=== PATIENT | female | born 1995 | race Caucasian/White ===

== ENCOUNTER 2018-04-06 15:47 | Outpatient (CLI) | payer OTHER ==
[2018-04-06 16:22] LABS: APPEARANCE,URINE SLIGHTLY-CLOUDY; BILIRUBIN,URINE NEGATIVE (NEGATIVE); COLOR,URINE YELLOW; GLUCOSE, URINE NEGATIVE (NEGATIVE); KETONES,URINE NEGATIVE (NEGATIVE); LEUKOCYTE ESTERASE,URINE MODERATE (NEGATIVE); NITRITE,URINE NEGATIVE (NEGATIVE); PROTEIN,URINE NEGATIVE (NEGATIVE); URINE SPECIFIC GRAVITY 1.015; UROBILINOGEN,URINE NEGATIVE mg/dL (<2.0)
[2018-04-06 16:37] LABS: URINE AMPHETAMINES SCREEN NEGATIVE; URINE BARBITURATES SCREEN NEGATIVE; URINE BENZODIAZEPINES SCREEN NEGATIVE; URINE COCAINE SCREEN NEGATIVE; URINE MARIJUANA (THC) SCREEN NEGATIVE; URINE METHADONE SCREEN NEGATIVE; URINE PHENCYCLIDINE SCREEN NEGATIVE
--- NOTE | 2018-04-06 17:10 | Non Stress Test Report ---
Non Stress Test Datetime Report Generated by CPN: 04/06/2018 17:09 DEMOGRAPHIC EGA NST: 39.2 INDICATION Indication for Study: Other Indication for Study (NST) Other: labor check VITAL SIGNS Temperature - NST: 98.5 Pulse - NST: 97 RESP - NST: 14 NBPSYS NST: 121 NBPDIA NST: 82 MONITORING Monitor Explained: Monitor Explained; Test Explained; Patient Verbalized Understanding Time on Monitor: 04/06/2018 16:04 Time off Monitor: 04/06/2018 16:38 NST Duration: 34 NST INTERVENTIONS NST Interventions: PO Hydration Physician Notified NST: A. Banks, CNM BABY A: [id number] BABY A Movement : Present Contraction Frequency : 0 FHR Baseline : 125 Accelerations : 15X15 Decelerations : None Variability : Moderate 6-25bpm NST Review and Verified By : J.Field, RN NST REPORT Report Trigger: Send Report
== END 2018-04-06 16:48 | disposition home or self-care (01) ==
LOC: LC 15:47
PROVIDERS: ATTEND Student in an Organized Health Care Education/Training Program
PROC: 4A1HXCZ Monitoring of Products of Conception, Cardiac Rate, External Approach (ICD-10-PCS; principal; 2018-04-06)
DX: Z34.93 Encounter for supervision of normal pregnancy, unspecified, third trimester (principal)
CPT/HCPCS: 59025; 80307; 81005

== ENCOUNTER 2018-04-07 07:55 | Inpatient (IN) | payer OTHER ==
[2018-04-07 08:59] LABS: APPEARANCE,URINE CLOUDY; BILIRUBIN,URINE NEGATIVE (NEGATIVE); COLOR,URINE YELLOW; GLUCOSE, URINE NEGATIVE (NEGATIVE); KETONES,URINE NEGATIVE (NEGATIVE); LEUKOCYTE ESTERASE,URINE TRACE (NEGATIVE); NITRITE,URINE NEGATIVE (NEGATIVE); PROTEIN,URINE NEGATIVE (NEGATIVE); URINE SPECIFIC GRAVITY 1.011; UROBILINOGEN,URINE NEGATIVE mg/dL (<2.0)
[2018-04-07 09:19] LABS: URINE AMPHETAMINES SCREEN NEGATIVE; URINE BARBITURATES SCREEN NEGATIVE; URINE BENZODIAZEPINES SCREEN NEGATIVE; URINE COCAINE SCREEN NEGATIVE; URINE MARIJUANA (THC) SCREEN NEGATIVE; URINE METHADONE SCREEN NEGATIVE; URINE PHENCYCLIDINE SCREEN NEGATIVE
--- NOTE | 2018-04-07 10:22 | Admission Physical ---
Datetime Report Generated by CPN: 04/07/2018 10:22 CURRENT ADMISSION Chief Complaint: Uterine Contractions Chief Complaint Other: contractions since this morning every 5 minutes Indication for Induction: Not Applicable Admit Impression : Term, Intrauterine Admit Impression- Other: labor Admit Plan: Admit to Unit; Initiate Labor Protocol ALLERGIES Medication Allergies: No Medication Allergies: No Known Allergies (04/06/2018) Latex: No Latex Allergies Food Allergies: n/a Environmental Allergies: n/a OBSTETRICAL HISTORY EDC: 04/11/2018 00:00 : 2 Para: 0 Term: 0 : 0 SAB: 0 IAB: 0 Ectopic: 0 Livin Cesareans: 0 VBACs: 0 Multiple Births: 0 Gestational Diabetes: No Rh Sensitization: No Incompetent Cervix: No AMADOR: No Infertility: No ART Treatment: No Uterine Anomaly: No IUGR: No Hx Previous C/S: No Macrosomia: No Hx Loss/Stillborn: No PIH: No Hx : No Placenta Previa/Abruption: No Depression/PP Depression: No PTL/PROM: No Post Hemorrhage: No Current Procedures: Ultrasound Obstetrical History Comments: G1- SAB G2- current SEE RECORDS Alcohol: No Marijuana : No Cocaine: No Other Illicit Drugs: No Cigarettes: Never Smoker. [id number] MEDICAL HISTORY Diabetes: No Blood Transfusion: No Pulmonary Disease (Asthma, TB): No Breast Disease: No Hypertension: No Pool Installer Surgery: No Heart Disease: No Hosp/Surgery: Yes Autoimmune Disorder: No Anesthetic Complications: No Kidney Disease: No Abnormal Pap Smear: No Neuro/Epilepsy: No Psychiatric Disorders: Yes Other Medical Diseases: No Hepatitis/Liver Disease: No Significant Family History: No Varicosities/Phlebitis: No Trauma/Violence : No Thyroid Dysfunction: No Medical History Comments: bipolar, anxiety, on gabapentin and topamax at conception, tapered off with advisement of psychiatrist broken R wrist with surgery INFECTIOUS HISTORY Gonorrhea: No Genital Herpes: No Chlamydia: No Tuberculosis: No Syphilis: No Hepatitis: No HIV/AIDS Exposure: No Rash or Viral Illness: No HPV: No PHYSICAL EXAM General: Normal HEENT: Normal Neurologic: Normal Thyroid: Normal Heart: Normal Lungs: Normal Breast: Normal Back: Normal Abdomen: Normal Genitourinary Exam: Normal Extremities: Normal DTRs: Normal Pelvic Type: Adequate Vital Signs: Reviewed; Within Normal Limits VAGINAL EXAM Dilatation: 4 Effacement: 90 Station: -3 Contraction Comments: 3 MEMBRANES Pooling: Negative Membranes: Bulging FETUS A EGA: 39.3 Monitoring: External US FHR- Baseline: 120 Variability: Moderate 6-25bpm Accelerations: 15X15 Decelerations: None FHR Category: Category I PLANS FOR LABOR AND DELIVERY Labor and Delivery: None Pain Management: Epidural Feeding Preference: Breast Benefit of Breast Feed Discussed: Yes Circumcision: Yes INFORMED CONSENT Signature: with User ID: [email or web address]
[2018-04-07] MEDS: RINGERS SOLUTION,LACTATED 1,000 ML IV PRN ×3 (10:25→15:11)
[2018-04-07] MEDS ORDERED: OXYTOCIN/NORMAL SALINE 20 UNIT/1,000 ML RTUINJ IV PRN ×2 (10:34→21:03)
[2018-04-07] MEDS ORDERED: EPHEDRINE SULFATE INJ 50 MG/1 ML AMPULE ONE (11:21)
[2018-04-07] MEDS ORDERED: BUPIVACAINE HCL 0.25 % INJ/PF (2.5 MG/1 ML) 30 ML VIAL ONE (11:22)
[2018-04-07] MEDS ORDERED: FENTANYL/BUPIVACAINE/NS/PF 300 MCG/150 ML RTUINJ EPI ONE (11:22)
[2018-04-07 11:32] LABS: HEMATOCRIT 41.6 % (36.0-47.0); HEMOGLOBIN 14.3 g/dL (12.0-15.5); MEAN CORPUSCULAR HGB CONC 34.3 g/dL (32.0-36.0); MEAN CORPUSCULAR VOLUME 93 fl (80-97); RED BLOOD COUNT 4.47 10^6/uL (3.72-5.28); RED CELL DISTRIBUTION WIDTH 13.4 % (11.5-14.0); WHITE BLOOD COUNT 20.2 10^3/uL (4.0-10.5)
[2018-04-07 11:53] LABS: ABSOLUTE LYMPHOCYTES# (MANUAL) 1.2 10^3/uL (0.5-4.7); ABSOLUTE MONOCYTES # (MANUAL) 0.6 10^3/uL (0.1-1.4); ABSOLUTE NEUTROPHILS# (MANUAL) 18.2 10^3/uL (1.7-8.2); BAND NEUTROPHILS % (MANUAL) 1 % (3-5); BASOPHILS % (MANUAL) 1 % (0-2); EOSINOPHILS % (MANUAL) 0 % (0-6); LYMPHOCYTES % (MANUAL) 6 % (13-45); MONOCYTES % (MANUAL) 3 % (3-13); SEGMENTED NEUTROPHILS % (MAN) 89 % (42-78); TOTAL CELLS COUNTED 100
[2018-04-07 11:54] LABS: PLATELET CLUMPS PRESENT; PLATELET COMMENT ADEQUATE; PLATELET COUNT 198 10^3/uL (150-450); RBC MORPHOLOGY COMMENT NORMO-CYTIC/CHROMIC
[2018-04-07] MEDS ORDERED: OXYTOCIN/NORMAL SALINE 20 UNIT/1,000 ML RTUINJ ONE (12:52)
[2018-04-07] MEDS ORDERED: LIDOCAINE 1% INJ-PF (10 MG/ML) 30 ML SDV ONE (12:52)
[2018-04-07] MEDS ORDERED: MISOPROSTOL 0.2 MG TABLET ONE (12:52)
[2018-04-07] MEDS ORDERED: ACETAMINOPHEN 325 MG TABLET PO ONE (19:12)
[2018-04-07] MEDS ORDERED: ACETAMINOPHEN 325 MG TABLET ONE (19:30)
[2018-04-07 21:03] LABS: ARTERIAL BLOOD BASE EXCESS -6.2 mmol/L; ARTERIAL BLOOD H2CO3 1.42 mmol/L (1.05-1.35); ARTERIAL BLOOD HCO3 20.9 mmol/L (20-26); ARTERIAL BLOOD O2 SATURATION 31.8 % (94-98); ARTERIAL BLOOD PCO2 47.3 mmHg (35-45); ARTERIAL BLOOD PH 7.26 (7.35-7.45); ARTERIAL BLOOD TOTAL CO2 22.4 mmol/L (21-25)
[2018-04-07] MEDS ORDERED: DIBUCAINE 1% OINTMENT 28 GM TP PRN (21:03)
[2018-04-07] MEDS ORDERED: MEASLES,MUMPS&RUBELLA VACC/PF 0.5 ML VIAL SUBCUT PRN (21:03)
[2018-04-07] MEDS ORDERED: ZOLPIDEM TARTRATE 5 MG TABLET PO PRN (21:03)
[2018-04-07] MEDS ORDERED: ACETAMINOPHEN WITH CODEINE #3 TABLET PO PRN ×2 (21:03)
[2018-04-07] MEDS ORDERED: BENZOCAINE/MENTHOL AEROSOL SPRAY 56 ML TOP PRN (21:03)
[2018-04-07] MEDS ORDERED: DIPH/PERTUSS(ACELL)/TETANUS VAC/PF 0.5 ML SYR (>=10YO) IM PRN (21:03)
[2018-04-07 21:04] LABS: ARTERIAL BLOOD PO2 22.6 mmHg (80-100)
--- NOTE | 2018-04-07 21:10 | Warning Signs in Babies ---
VOD Warning Signs Datetime Report Generated by [facility]: 04/07/2018 21:10 VOD#608 -Warning Signs in Babies: Viewed with Parent(s)/Family (04/07/2018 21:09:Anabell Leon RN)
--- NOTE | 2018-04-07 21:11 | PDOC DELIVERY SUMMARY ---
Delivery Summary - Maternal Hx : II Hx Para: 0 Hx # Term Pregnancies: 1 Hx # Pregnancies: 0 Hx Total # of Abortions (Sponateous & Elective): 1 Number of Living Children: 0 HEATHER: 04/11/18 Gestational Age: 39.3 Ruptured Membranes: AROM Time of Rupture: 12:31 Fluids: Clear Fluid Description: clear moderate amount - Delivery Labor: Augmentation Presentation: Vertex Heart Rate Monitoring: Externally Uterine Contraction Monitoring: External Pattern: Variable Decels Pattern Other: overall reassuring Support Person Present: Yes - and friend Location: LD - room 5 Placenta: Within Normal Limits Placenta Description: normal appearing Number of Vessels (Cord): 3 Nuchal Cord: No Delivery of Placenta Date: 04/07/18 Delivery of Placenta Time: 20:50 Estimated Blood Loss: 100 Delivery Quantitative Blood Loss (QBL): 100 - Medications Type of Anesthesia:: Epidural - Assess and Care Baby 1 Male Delivery of Infant Date: 04/07/18 Delivery of Time: 20:45 at 1 minute: 8 at 5 minutes: 9 Skin to Skin: Yes Skin to Skin (Mins): 1 - infant placed immediately on mothers abdomen - Delivery Personnel MD: MARLYS AUSTIN - pending weight and length
--- NOTE | 2018-04-07 22:48 | Delivery Summary ---
Del Sum A-C Datetime Report Generated by CPN: 04/07/2018 22:47 DELIVERY PERSONNEL DELIVERY PERSONNEL: [id number] Delivery Doctor:: Silvia Arevalo MD Labor and Delivery Nurse:: Anabell Leon RNaccount service associate Nurse:: Julianne Frank RN Portable Power Tool Repairer/AMUSEMENT CENTRE MANAGER: Perlita DavisEMILIA dover Portable Power Tool Repairer/AMUSEMENT CENTRE MANAGER: Lulújasbir Vazquez, ST MATERNAL INFORMATION Delivery Anesthesia: Epidural Medications After Delivery: Pitocin Drip 20 Units/1000ml NSS Maternal Complications: None LABOR SUMMARY EDC: 04/11/2018 00:00 No. Babies in Womb: 1 Attempted: No Labor Anesthesia: Epidural LABOR INFORMATION Reason for Induction: Not Applicable Onset of Labor: 04/07/2018 12:31 Complete Dilatation: 04/07/2018 20:04 Oxytocin: N/A Group B Beta Strep: negative Antibiotics # of Doses: N/A Antibiotics Time of Last Dose: N/A Steroids Given: None Reason Steroids Not Administered: Not Applicable MEMBRANES Membranes Rupture Method: Artificial Rupture of Membranes: 04/07/2018 12:31 Length of Rupture (hr): 8.23 Amniotic Fluid Color: Clear Amniotic Fluid Amount: Moderate Amniotic Fluid Odor: Normal STAGES OF LABOR Stage 1 hr: 7 Stage 1 min: 33 Stage 2 hr: 0 Stage 2 min: 41 Stage 3 hr: 0 Stage 3 min: 3 Total Time in Labor hr: 8 Total Time in Labor min: 17 VAGINAL DELIVERY Episiotomy: None Laceration #1: Periurethral Laceration Extension #1: First Degree Laceration #2: None Laceration Extension #2: N/A Laceration #3: None Laceration Extension #3: N/A Other Laceration: hemostatic Laceration Repair: Not Applicable Sponge Count Correct: Vaginal Sweep Performed Sharps Count Correct: N/A CSECTION DELIVERY Primary Indication: N/A Secondary Indication: N/A CSection Incidence: N/A Labor: N/A Elective: N/A CSection Incision: N/A BABY A INFORMATION Delivery Date/Time: 04/07/2018 20:45 Method of Delivery: Vaginal Born in Route : No : N/A Forceps: N/A Vacuum Extraction: N/A Shoulder Dystocia : No PRESENTATION/POSITION BABY A Presentation: Cephalic Cephalic Presentation: Vertex Breech Presentation: N/A PLACENTA INFORMATION BABY A Placenta Delivery Time : 04/07/2018 20:48 Placenta Method of Delivery: Spontaneous Placenta Status: Delivered SCORES BABY A Heart Rate 1 min: >100 bpm Resp Effort 1 min: Good Cry Reflex Irritability 1 min: Cough or Sneeze or Pulls Away Muscle Tone 1 min: Active Motion Color 1 min: Blue/Pale Resuscitation Effort 1 min: Tactile Stimulation SCORE 1 MIN: 8 Heart Rate 5 min: >100 bpm Resp Effort 5 min: Good Cry Reflex Irritability 5 min: Cough or Sneeze or Pulls Away Muscle Tone 5 min: Active Motion Color 5 min: Body [place], Extremities Blue Resuscitation Effort 5 min: Tactile Stimulation SCORE 5 MIN: 9 INFORMATION BABY A Gestational Age at Delivery: 39.3 Gestational Status: Full Term- 39- 40.6 Weeks Outcome : Liveborn Infant Condition : Stable Infant Sex: Male IDENTIFICATION BABY A Infant Verification Date/Time: 04/07/2018 21:07 ID Band Number: [id number] Mother's Name Verified: Yes RN Verifying Infant: B. Ring RN _ E. Gerald RN WEIGHT/LENGTH BABY A Birthweight (gm): 3010 Weight (lb): 6 Weight (oz): 10 Infant Length (in): 19.50 Infant Length (cm): 49.53 CORD INFORMATION BABY A No. Cord Vessels: 3 Nuchal Cord : N/A Cord Blood Taken: Yes-For Storage (Mom's Blood type +) Infant Suction: Mouth; Nose ASSESSMENT BABY A Infant Complications: None Physical Findings at Delivery: Within Normal Limits Physical Findings- Other: See full nursery assessment Respirations: Appears Normal Skin to Skin: Yes Skin to Skin Time (min): 120 Location Analyst/ALS Called : No Transferred To: Remains with Mother BABY B INFORMATION : N/A SIGNATURES Signature: with User ID: [email or web address]
[2018-04-07] MEDS: IBUPROFEN 800 MG TABLET PO SCH (23:16)
[2018-04-08] MEDS: IBUPROFEN 800 MG TABLET PO SCH ×3 (06:26→21:33)
[2018-04-08 07:57] LABS: HEMATOCRIT 35.5 % (36.0-47.0); MEAN CORPUSCULAR HEMOGLOBIN 31.7 pg (27.0-33.4); MEAN CORPUSCULAR HGB CONC 33.7 g/dL (32.0-36.0); MEAN CORPUSCULAR VOLUME 94 fl (80-97); PLATELET COUNT 148 10^3/uL (150-450); RED BLOOD COUNT 3.78 10^6/uL (3.72-5.28); RED CELL DISTRIBUTION WIDTH 13.5 % (11.5-14.0); WHITE BLOOD COUNT 18.2 10^3/uL (4.0-10.5)
--- NOTE | 2018-04-08 09:01 | PDOC PROGRESS REPORT ---
Subjective-OB Progress Note for:: 04/08/18 Subjective: reports bleeding slowing, pain controlled with current meds, denies needs. Physical Exam (OB) Vital Signs: Temp Pulse Resp BP Pulse Ox 98.7 F 108 H 18 116/67 96 04/07/18 23:09 04/07/18 23:09 04/07/18 23:09 04/07/18 23:09 04/07/18 23:09 Intake & Output 04/07/18 04/08/18 04/09/18 06:59 06:59 06:59 Intake Total 1148 Balance 1148 Weight 83.1 kg - Abdomen Description: Soft Hernia Present: No Fundal Description: Firm, Midline Fundal Height: u/u - u/2 - Abdominal Inspection: Normal Distension: No distension Tenderness: Nontender - Extremities Lower extremities: Jacqueline's sign - neg Calf: Normal, Nontender Objective-Diagnostic Laboratory: 04/08/18 06:55 04/07/18 04/07/18 04/07/18 08:06 11:15 11:15 WBC 20.2 H RBC 4.47 Hgb 14.3 Hct 41.6 MCV 93 MCH 32.0 MCHC 34.3 RDW 13.4 Plt Count 198 Seg Neutrophils % Not Reportable Lymphocytes % Not Reportable Monocytes % Not Reportable Eosinophils % Not Reportable Basophils % Not Reportable Absolute Neutrophils Not Reportable Absolute Lymphocytes Not Reportable Absolute Monocytes Not Reportable Absolute Eosinophils Not Reportable Absolute Basophils Not Reportable Carbonic Acid HCO3/H2CO3 Ratio ABG pH ABG pCO2 ABG pO2 ABG HCO3 ABG O2 Saturation ABG Base Excess FiO2 Urine Color YELLOW Urine Appearance CLOUDY Urine pH 6.0 Ur Specific [place] 1.011 Urine Protein NEGATIVE Urine Glucose (UA) NEGATIVE Urine Ketones NEGATIVE Urine Blood SMALL H Urine Nitrite NEGATIVE Ur Leukocyte Esterase TRACE H Blood Type A POSITIVE Antibody Screen NEGATIVE 04/07/18 04/08/18 20:46 06:55 WBC 18.2 H RBC 3.78 Hgb 12.0 D Hct 35.5 L MCV 94 MCH 31.7 MCHC 33.7 RDW 13.5 Plt Count 148 L Seg Neutrophils % Lymphocytes % Monocytes % Eosinophils % Basophils % Absolute Neutrophils Absolute Lymphocytes Absolute Monocytes Absolute Eosinophils Absolute Basophils Carbonic Acid 1.42 H HCO3/H2CO3 Ratio 14:1 ABG pH 7.26 L ABG pCO2 47.3 H ABG pO2 22.6 L* ABG HCO3 20.9 ABG O2 Saturation 31.8 L ABG Base Excess -6.2 FiO2 Urine Color Urine Appearance Urine pH Ur Specific [place] Urine Protein Urine Glucose (UA) Urine Ketones Urine Blood Urine Nitrite Ur Leukocyte Esterase Blood Type Antibody Screen Assessment and Plan(PN) - Assessment and Plan (1) Normal vaginal delivery Is this a current diagnosis for this admission?: Yes - Time Spent with Patient Time with patient: Less than 15 minutes Medications reviewed and adjusted accordingly: Yes - Disposition Anticipated Discharge: Home Within: within 24 hours
[2018-04-08] MEDS: SENNOSIDES/DOCUSATE 8.6-50 MG 1 EACH TABLET PO SCH (10:05)
[2018-04-08] MEDS: FERROUS SULFATE 325 MG TABLET PO SCH ×2 (10:06→17:29)
[2018-04-08] MEDS: PRENATAL VITAMIN W DHA CAPSULE PO SCH ×2 (10:06)
[2018-04-08] MEDS: DOCUSATE SODIUM 100 MG CAPSULE PO SCH ×2 (10:06→17:29)
[2018-04-09] MEDS: IBUPROFEN 800 MG TABLET PO SCH ×2 (06:47→15:04)
[2018-04-09 08:09] VITALS: BP 124/74
--- NOTE | 2018-04-09 09:34 | PDOC DISCHARGE SUMMARY ---
Final Diagnosis Discharge Date: 04/09/18 - Final Diagnosis (1) Normal vaginal delivery Is this a current diagnosis for this admission?: Yes Discharge Data - Discharge Medication Prescriptions: Ibuprofen [Motrin 800 mg Tablet] 800 mg PO Q8HP PRN #30 tablet PRN Reason: Abdominal Cramping Home Medications: No122/Iron/Folic Acid [ Multi Tablet] 1 tab PO DAILY 04/06/18 Ibuprofen [Motrin 800 mg Tablet] 800 mg PO Q8HP PRN #30 tablet 04/09/18 Reason(s) for Admission: Onset of Labor Procedures: Ultrasound Intrapartum Procedure(s): Spontaneous Vaginal Delivery Complication(s): Laceration-Periurethral Laceration-Degree: 1st - Diagnosis Test Laboratory: Temp Pulse Resp BP Pulse Ox 98.6 F 74 16 124/74 100 04/09/18 07:47 04/09/18 07:47 04/09/18 07:47 04/09/18 07:47 04/09/18 07:47 04/07/18 04/07/18 04/08/18 08:06 11:15 06:55 RBC 4.47 3.78 Hgb 14.3 12.0 D Hct 41.6 35.5 L Urine Opiates Screen NEGATIVE - Discharge information/Instructions Discharge Activity: Activity As Tolerated, Balance Activity w/Rest, No Lifting Over 10 Pounds, Pelvic Rest, No tub bath, Walk Frequently Discharge Diet: Regular Disposition: HOME, SELF-CARE Follow up with: [facility] in: 4, Weeks
[2018-04-09] MEDS: PRENATAL VITAMIN W DHA CAPSULE PO SCH ×2 (09:54→14:55)
[2018-04-09] MEDS: DOCUSATE SODIUM 100 MG CAPSULE PO SCH (09:55)
[2018-04-09] MEDS: SENNOSIDES/DOCUSATE 8.6-50 MG 1 EACH TABLET PO SCH (09:55)
[2018-04-09] MEDS: FERROUS SULFATE 325 MG TABLET PO SCH (09:55)
== END 2018-04-09 18:44 | disposition home or self-care (01) | DRG 775 ==
LOC: LC 07:55 → LR 10:28 → 2S 22:54
PROVIDERS: ADMIT Obstetrics & Gynecology; ATTEND Obstetrics & Gynecology
PROC: 10E0XZZ Delivery of Products of Conception, External Approach (ICD-10-PCS; principal; 2018-04-07)
PROC: 4A1HXCZ Monitoring of Products of Conception, Cardiac Rate, External Approach (ICD-10-PCS; 2018-04-07)
PROC: 3E0234Z Introduction of Serum, Toxoid and Vaccine into Muscle, Percutaneous Approach (ICD-10-PCS; 2018-04-09)
DX: O99.344 Other mental disorders complicating childbirth (principal); O71.82 Other specified trauma to perineum and vulva; O70.0 First degree perineal laceration during delivery; F41.9 Anxiety disorder, unspecified; Z3A.39 39 weeks gestation of pregnancy; Z37.0 Single live birth; Z23 Encounter for immunization
CPT/HCPCS: 36415; 59025; 80307; 81005; 82803; 85025; 85027; 86592; 86850; 86900; 86901; 90715; 94760; J2590; J3010; J3490

== ENCOUNTER 2019-08-07 08:20 | Inpatient (IN) | payer OTHER ==
[2019-08-07] MEDS ORDERED: RINGERS SOLUTION,LACTATED 1,000 ML IV PRN (08:54)
[2019-08-07] MEDS ORDERED: RINGERS SOLUTION,LACTATED 1,000 ML IV ONE (08:54)
[2019-08-07] MEDS ORDERED: MISOPROSTOL 0.2 MG TABLET ONE (08:59)
[2019-08-07] MEDS ORDERED: OXYTOCIN 10 UNIT/ML VIAL ONE (08:59)
[2019-08-07] MEDS ORDERED: OXYTOCIN/NORMAL SALINE 20 UNIT/1,000 ML RTUINJ ONE (09:00)
[2019-08-07] MEDS ORDERED: LIDOCAINE 1% INJ-PF (10 MG/ML) 30 ML SDV ONE (09:00)
--- NOTE | 2019-08-07 09:02 | Admission Physical ---
Datetime Report Generated by CPN: 08/07/2019 09:02 CURRENT ADMISSION Chief Complaint: Uterine Contractions Indication for Induction: Not Applicable Admit Impression : Term, Intrauterine ; Active Labor; Intact Membranes Admit Plan: Admit to Unit; Initiate Labor Protocol ALLERGIES Medication Allergies: No Medication Allergies: No Known Allergies (04/06/2018) Latex: No Latex Allergies OBSTETRICAL HISTORY EDC: 08/13/2019 00:00 : 2 Para: 1 Term: 1 Livin Gestational Diabetes: No Rh Sensitization: No Incompetent Cervix: No AMADOR: No Infertility: No ART Treatment: No Uterine Anomaly: No IUGR: No Hx Previous C/S: No Macrosomia: No Hx Loss/Stillborn: No PIH: No Hx : No Placenta Previa/Abruption: No Depression/PP Depression: No PTL/PROM: No Post Hemorrhage: No Current Procedures: Ultrasound; NST SEE RECORDS Alcohol: No Marijuana : No Cocaine: No Other Illicit Drugs: No Cigarettes: Never Smoker. 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 Heart Disease: No Hosp/Surgery: No Autoimmune Disorder: No Anesthetic Complications: No Kidney Disease: No Abnormal Pap Smear: No Neuro/Epilepsy: No Psychiatric Disorders: No Other Medical Diseases: No Hepatitis/Liver Disease: No Significant Family History: No Varicosities/Phlebitis: No Trauma/Violence : No Thyroid Dysfunction: No INFECTIOUS HISTORY Gonorrhea: No Genital Herpes: No Chlamydia: No Tuberculosis: No Syphilis: No Hepatitis: No HIV/AIDS Exposure: No Rash or Viral Illness: No HPV: No PHYSICAL EXAM General: Normal HEENT: Normal Neurologic: Normal Thyroid: Normal Heart: Normal Lungs: Normal Breast: Normal Back: Normal Abdomen: Normal Genitourinary Exam: Normal Extremities: Normal DTRs: Normal Pelvic Type: Adequate Vital Signs: Reviewed; Within Normal Limits VAGINAL EXAM Dilatation: 6 Effacement: 90 Station: -1 Contraction Comments: q 4 min MEMBRANES Membranes: Intact FETUS A EGA: 39.1 Monitoring: External US FHR- Baseline: 120s Variability: Moderate 6-25bpm Accelerations: 15X15 Decelerations: None FHR Category: Category I Admit Comment: presented to L_D c/o contractions which started early this morning. Her cervical exam is 6 cm. Membranes intact. She reports good movement. GBS Neg. No co-morbidities. PLANS FOR LABOR AND DELIVERY Labor and Delivery: None Pain Management: Epidural Feeding Preference: Breast Benefit of Breast Feed Discussed: Yes Circumcision: Yes INFORMED CONSENT Signature: with User ID: [email or web address]
[2019-08-07 09:20] LABS: ABSOLUTE LYMPHOCYTES (AUTO) 1.7 10^3/uL (0.5-4.7); ABSOLUTE MONOCYTES (AUTO) 0.7 10^3/uL (0.1-1.4); ABSOLUTE NEUT (AUTO) 11.3 10^3/uL (1.7-8.2); BASOPHILS % (AUTO) 0.1 % (0-2); EOSINOPHILS % (AUTO) 0.2 % (0-6); HEMATOCRIT 39.5 % (36.0-47.0); HEMOGLOBIN 13.2 g/dL (12.0-15.5); LYMPHOCYTES % (AUTO) 12.4 % (13-45); MEAN CORPUSCULAR HEMOGLOBIN 29.9 pg (27.0-33.4); MEAN CORPUSCULAR HGB CONC 33.4 g/dL (32.0-36.0); MEAN CORPUSCULAR VOLUME 89 fl (80-97); MONOCYTES % (AUTO) 5.2 % (3-13); PLATELET COUNT 189 10^3/uL (150-450); RED BLOOD COUNT 4.42 10^6/uL (3.72-5.28); RED CELL DISTRIBUTION WIDTH 13.7 % (11.5-14.0); SEGMENTED NEUTROPHILS % (AUTO) 82.1 % (42-78); TOTAL CELLS COUNTED % (AUTO) 100 %; WHITE BLOOD COUNT 13.7 10^3/uL (4.0-10.5)
[2019-08-07 09:33] LABS: APPEARANCE,URINE CLOUDY; BILIRUBIN,URINE NEGATIVE (NEGATIVE); COLOR,URINE YELLOW; GLUCOSE, URINE NEGATIVE (NEGATIVE); KETONES,URINE NEGATIVE (NEGATIVE); LEUKOCYTE ESTERASE,URINE LARGE (NEGATIVE); NITRITE,URINE NEGATIVE (NEGATIVE); PROTEIN,URINE 30 mg/dL (NEGATIVE); URINE SPECIFIC GRAVITY 1.023; UROBILINOGEN,URINE NEGATIVE mg/dL (<2.0)
[2019-08-07] MEDS ORDERED: FENTANYL/BUPIVACAINE/NS/PF 300 MCG/150 ML RTUINJ EPI ONE (09:33)
[2019-08-07] MEDS ORDERED: EPHEDRINE SULFATE INJ 50 MG/1 ML AMPULE ONE (09:33)
[2019-08-07] MEDS ORDERED: BUPIVACAINE HCL 0.25 % INJ/PF (2.5 MG/1 ML) 30 ML VIAL ONE (09:33)
[2019-08-07 09:51] LABS: URINE AMPHETAMINES SCREEN NEGATIVE; URINE BARBITURATES SCREEN NEGATIVE; URINE BENZODIAZEPINES SCREEN NEGATIVE; URINE COCAINE SCREEN NEGATIVE; URINE MARIJUANA (THC) SCREEN NEGATIVE; URINE METHADONE SCREEN NEGATIVE; URINE PHENCYCLIDINE SCREEN NEGATIVE
[2019-08-07] MEDS ORDERED: DIPH/PERTUSS(ACELL)/TETANUS VAC/PF 0.5 ML SYR (>=10YO) IM PRN (13:15)
[2019-08-07] MEDS ORDERED: DIBUCAINE 1% OINTMENT 56 GM TP PRN (13:15)
[2019-08-07] MEDS ORDERED: PSEUDOEPHEDRINE HCL 30 MG TABLET PO PRN (13:15)
[2019-08-07] MEDS ORDERED: DIPHENHYDRAMINE HCL 25 MG CAPSULE PO PRN (13:15)
[2019-08-07] MEDS ORDERED: PROMETHAZINE HCL INJ 25 MG/1 ML VIAL IV PRN (13:15)
[2019-08-07] MEDS ORDERED: NA PHOS,M-B/NA PHOS,DI-BA (ADULT) 133 ML ENEMA PR PRN (13:15)
[2019-08-07] MEDS ORDERED: MAGNESIUM HYDROXIDE SUSP 30 ML UDCUP PO PRN (13:15)
[2019-08-07] MEDS ORDERED: PROMETHAZINE HCL 25 MG TABLET PO PRN (13:15)
[2019-08-07] MEDS ORDERED: PROMETHAZINE HCL 25 MG SUPP.RECT PR PRN (13:15)
[2019-08-07] MEDS ORDERED: BENZOCAINE/MENTHOL AEROSOL SPRAY 56 ML TOP PRN (13:15)
[2019-08-07] MEDS ORDERED: OXYTOCIN/NORMAL SALINE 20 UNIT/1,000 ML RTUINJ IV PRN (13:15)
[2019-08-07] MEDS ORDERED: MEASLES,MUMPS&RUBELLA VACC/PF 0.5 ML VIAL SUBCUT PRN (13:15)
[2019-08-07] MEDS ORDERED: GLYCERIN/WITCH HAZEL LEAF 1 EACH MED..WIPE TP PRN (13:15)
[2019-08-07] MEDS ORDERED: ACETAMINOPHEN 325 MG TABLET PO PRN (13:15)
[2019-08-07] MEDS: IBUPROFEN 800 MG TABLET PO SCH ×2 (15:56→21:00)
[2019-08-07] MEDS: DOCUSATE SODIUM 100 MG CAPSULE PO SCH (17:54)
[2019-08-07] MEDS: FERROUS SULFATE 325 MG TABLET PO SCH (17:54)
[2019-08-07] MEDS: FAMOTIDINE 20 MG TABLET PO SCH (21:04)
[2019-08-08] MEDS: IBUPROFEN 800 MG TABLET PO SCH ×3 (05:36→21:27)
[2019-08-08 07:21] LABS: HEMATOCRIT 33.9 % (36.0-47.0); HEMOGLOBIN 11.4 g/dL (12.0-15.5); MEAN CORPUSCULAR HEMOGLOBIN 30.1 pg (27.0-33.4); MEAN CORPUSCULAR HGB CONC 33.6 g/dL (32.0-36.0); MEAN CORPUSCULAR VOLUME 90 fl (80-97); PLATELET COUNT 166 10^3/uL (150-450); RED BLOOD COUNT 3.78 10^6/uL (3.72-5.28); RED CELL DISTRIBUTION WIDTH 13.8 % (11.5-14.0); WHITE BLOOD COUNT 13.7 10^3/uL (4.0-10.5)
[2019-08-08] MEDS: SENNOSIDES/DOCUSATE 8.6-50 MG 1 EACH TABLET PO SCH (09:55)
[2019-08-08] MEDS: PRENATAL VITAMIN W DHA CAPSULE PO SCH (09:55)
[2019-08-08] MEDS: FAMOTIDINE 20 MG TABLET PO SCH ×2 (09:55→21:26)
[2019-08-08] MEDS: FERROUS SULFATE 325 MG TABLET PO SCH ×2 (09:55→17:34)
[2019-08-08] MEDS: DOCUSATE SODIUM 100 MG CAPSULE PO SCH ×2 (09:55→17:34)
--- NOTE | 2019-08-08 10:14 | PDOC PROGRESS REPORT ---
Subjective-OB Progress Note for:: 08/08/19 Physical Exam (OB) Vital Signs: Temp Pulse Resp BP Pulse Ox 97.7 F 63 16 107/67 100 08/08/19 07:46 08/08/19 07:46 08/08/19 07:46 08/08/19 07:46 08/08/19 07:46 Intake & Output 08/07/19 08/08/19 08/09/19 06:59 06:59 06:59 Weight 83 kg - PIH/Pre-Eclampsia DTR's: 2 + Clonus: Negative Headache: Absent Epigastric Pain: No Visual Changes: No - Lochia Lochia Amount: Small 10-25 ml Lochia Color: Rubra/Red - Abdomen Description: Soft, Round Hernia Present: No Bowel Sounds: Normoactive Flatus Presence: Present Stool: Yes Fundal Description: Firm, Midline Fundal Height: u/u - u/2 Objective-Diagnostic Laboratory: 08/08/19 06:40 08/08/19 06:40 WBC 13.7 H RBC 3.78 Hgb 11.4 L Hct 33.9 L MCV 90 MCH 30.1 MCHC 33.6 RDW 13.8 Plt Count 166
[2019-08-09] MEDS: IBUPROFEN 800 MG TABLET PO SCH ×2 (05:17→14:51)
[2019-08-09 09:23] VITALS: BP 114/73
[2019-08-09] MEDS: FERROUS SULFATE 325 MG TABLET PO SCH (09:26)
[2019-08-09] MEDS: PRENATAL VITAMIN W DHA CAPSULE PO SCH (09:26)
[2019-08-09] MEDS: FAMOTIDINE 20 MG TABLET PO SCH (09:26)
[2019-08-09] MEDS: SENNOSIDES/DOCUSATE 8.6-50 MG 1 EACH TABLET PO SCH (09:26)
[2019-08-09] MEDS: DOCUSATE SODIUM 100 MG CAPSULE PO SCH (09:26)
--- NOTE | 2019-08-09 10:37 | PDOC DISCHARGE SUMMARY ---
Impression - Admit/DC Date/PCP Admission Date/Primary Care Provider: 08/07/19 08:56 ALESSIO ALCARAZ MD Discharge Date: 08/09/19 - Discharge Diagnosis (1) Normal vaginal delivery Is this a current diagnosis for this admission?: Yes - Additional Information Resuscitation Status: Full Code Discharge Diet: Regular Discharge Activity: Balance Activity w/Rest Referrals: ALESSIO ALCARAZ MD [Primary Care Provider] - Prescriptions: Ibuprofen [Motrin 800 mg Tablet] 800 mg PO Q8HP PRN #60 tablet PRN Reason: Home Medications: No122/Iron/Folic Acid [ Multi Tablet] 1 tab PO DAILY 04/06/18 Ibuprofen [Motrin 800 mg Tablet] 800 mg PO Q8HP PRN #60 tablet 08/09/19 Results Laboratory Results: WBC 13.7 10^3/uL (4.0-10.5) H 08/08/19 06:40 RBC 3.78 10^6/uL (3.72-5.28) 08/08/19 06:40 Hgb 11.4 g/dL (12.0-15.5) L 08/08/19 06:40 Hct 33.9 % (36.0-47.0) L 08/08/19 06:40 MCV 90 fl (80-97) 08/08/19 06:40 MCH 30.1 pg (27.0-33.4) 08/08/19 06:40 MCHC 33.6 g/dL (32.0-36.0) 08/08/19 06:40 RDW 13.8 % (11.5-14.0) 08/08/19 06:40 Plt Count 166 10^3/uL (150-450) 08/08/19 06:40 Lymph % (Auto) 12.4 % (13-45) L 08/07/19 09:08 [place] % (Auto) 5.2 % (3-13) 08/07/19 09:08 Eos % (Auto) 0.2 % (0-6) 08/07/19 09:08 Baso % (Auto) 0.1 % (0-2) 08/07/19 09:08 Absolute Neuts (auto) 11.3 10^3/uL (1.7-8.2) H 08/07/19 09:08 Absolute Lymphs (auto) 1.7 10^3/uL (0.5-4.7) 08/07/19 09:08 Absolute Monos (auto) 0.7 10^3/uL (0.1-1.4) 08/07/19 09:08 Absolute Eos (auto) 0.0 10^3/uL (0.0-0.6) 08/07/19 09:08 Absolute Basos (auto) 0.0 10^3/uL (0.0-0.2) 08/07/19 09:08 Seg Neutrophils % 82.1 % (42-78) H 08/07/19 09:08 Urine Color YELLOW 08/07/19 07:59 Urine Appearance CLOUDY 08/07/19 07:59 Urine pH 7.0 (5.0-9.0) 08/07/19 07:59 Ur Specific [place] 1.023 08/07/19 07:59 Urine Protein 30 mg/dL (NEGATIVE) H 08/07/19 07:59 Urine Glucose (UA) NEGATIVE mg/dL (NEGATIVE) 08/07/19 07:59 Urine Ketones NEGATIVE mg/dL (NEGATIVE) 08/07/19 07:59 Urine Blood NEGATIVE (NEGATIVE) 08/07/19 07:59 Urine Nitrite NEGATIVE (NEGATIVE) 08/07/19 07:59 Urine Bilirubin NEGATIVE (NEGATIVE) 08/07/19 07:59 Urine Urobilinogen NEGATIVE mg/dL (<2.0) 08/07/19 07:59 Ur Leukocyte Esterase LARGE (NEGATIVE) H 08/07/19 07:59 Urine Ascorbic Acid NEGATIVE (NEGATIVE) 08/07/19 07:59 Urine Opiates Screen NEGATIVE 08/07/19 08:35 Urine Methadone Screen NEGATIVE 08/07/19 08:35 Ur Barbiturates Screen NEGATIVE 08/07/19 08:35 Ur Phencyclidine Scrn NEGATIVE 08/07/19 08:35 Ur Amphetamines Screen NEGATIVE 08/07/19 08:35 U Benzodiazepines Scrn NEGATIVE 08/07/19 08:35 Urine Cocaine Screen NEGATIVE 08/07/19 08:35 U Marijuana (THC) Screen NEGATIVE 08/07/19 08:35 RPR NONREACTIVE (NONREACTIVE) 08/07/19 09:08 Blood Type A POSITIVE 08/07/19 09:08 Antibody Screen NEGATIVE 08/07/19 09:08
--- NOTE | 2019-08-12 13:23 | Delivery Summary ---
Del Sum A-C Datetime Report Generated by CPN: 08/12/2019 13:23 DELIVERY PERSONNEL DELIVERY PERSONNEL: [id number] Delivery Doctor:: Lindsay Grady CNM Nurse Adjudication Specialist Certified:: Lindsay Grady CNM Labor and Delivery Nurse:: Светлана Pastor RNsteam bone press tender Nurse:: Diane Leal RN Student Observers:: st Barb student CCC Braided Band Assembler/RETAIL MERCHANDISER TECHNICIAN: Sandi Shields, LAND INSPECTOR Additional Personnel: : Veronicawen Adorno, RNC MATERNAL INFORMATION Delivery Anesthesia: Epidural Medications After Delivery: Pitocin Bolus-Please Comment Meds After Delivery Comment: Pitocin 20 units in 1000 ml ns open for bolus after delivery of placenta Cytotec 1000mcg sublingual Delivery QBL: 100 Maternal Complications: None Provider Comments: Pt quickly progressed to c/c/2 with presure and slight urge to push after AROM. Began pushing and quickly delivered a viable baby boy. Baby delivered thru loose nuchal cord in DENSI position. Vigorous respiratory effort and cry spontaneously at . Baby placed on maternal abdomen skin to skin, cord allowed to stop pulsating then clamped x2 and cut by myself (3vc noted). Placenta delivered spontaneously intact, minimal bleeding, fundus firm @ U -3. Vaginal and perineal inspection revealed no lacerations. Mother and baby remain skin to skin and bonding at this time. LABOR SUMMARY EDC: 08/13/2019 00:00 No. Babies in Womb: 1 Attempted: No Labor Anesthesia: Epidural LABOR INFORMATION Reason for Induction: Not Applicable Onset of Labor: 08/07/2019 05:00 Complete Dilatation: 08/07/2019 12:26 Oxytocin: N/A Group B Beta Strep: Negative Antibiotics # of Doses: 0 Steroids Given: None Reason Steroids Not Administered: Not Applicable MEMBRANES Membranes Rupture Method: Artificial Rupture of Membranes: 08/07/2019 11:59 Length of Rupture (hr): 0.77 Amniotic Fluid Color: Clear Amniotic Fluid Amount: Moderate Amniotic Fluid Odor: Normal STAGES OF LABOR Stage 1 hr: 7 Stage 1 min: 26 Stage 2 hr: 0 Stage 2 min: 19 Stage 3 hr: 0 Stage 3 min: 6 Total Time in Labor hr: 7 Total Time in Labor min: 51 VAGINAL DELIVERY Episiotomy: None Laceration #1: None Laceration Extension #1: N/A Laceration Repair: Not Applicable Laceration Repair Note: n/a Sponge Count Correct: N/A Sharps Count Correct: N/A CSECTION DELIVERY Primary Indication: N/A Secondary Indication: N/A CSection Incidence: N/A Labor: N/A Elective: N/A CSection Incision: N/A BABY A INFORMATION Infant Delivery Date/Time: 08/07/2019 12:45 Method of Delivery: Vaginal Born in Route : No : N/A Forceps: N/A Vacuum Extraction: N/A Shoulder Dystocia : No PRESENTATION/POSITION BABY A Presentation: Cephalic Cephalic Presentation: Vertex Vertex Position: Right Occipital Anterior Breech Presentation: N/A PLACENTA INFORMATION BABY A Placenta Delivery Time : 08/07/2019 12:51 Placenta Method of Delivery: Spontaneous Placenta Status: Delivered SCORES BABY A Heart Rate 1 min: >100 bpm Resp Effort 1 min: Good Cry Reflex Irritability 1 min: Cough or Sneeze or Pulls Away Muscle Tone 1 min: Active Motion Color 1 min: Blue/Pale Resuscitation Effort 1 min: Tactile Stimulation SCORE 1 MIN: 8 Heart Rate 5 min: >100 bpm Resp Effort 5 min: Good Cry Reflex Irritability 5 min: Cough or Sneeze or Pulls Away Muscle Tone 5 min: Active Motion Color 5 min: Body [place], Extremities Blue Resuscitation Effort 5 min: N/A SCORE 5 MIN: 9 Resuscitation Effort 10 min: N/A INFANT INFORMATION BABY A Gestational Age at Delivery: 39.1 Gestational Status: Full Term- 39- 40.6 Weeks Outcome : Liveborn Infant Condition : Stable Sex: Male IDENTIFICATION BABY A Infant Verification Date/Time: 08/07/2019 12:58 ID Band Number: [id number] Mother's Name Verified: Yes RN Verifying Infant: M Sasala RN Additional Verifying Personnel: J Niebuhr WEIGHT/LENGTH BABY A Infant Birthweight (gm): 3140 Weight (lb): 6 Weight (oz): 15 Length (in): 20.00 Length (cm): 50.80 CORD INFORMATION BABY A No. Cord Vessels: 3 Nuchal Cord : Around Neck x1, Loose Cord Blood Taken: Yes-For Storage (Mom's Blood type +) Infant Suction: None ASSESSMENT BABY A Complications: None Physical Findings at Delivery: Within Normal Limits Infant Respirations: Appears Normal Skin to Skin: Yes Skin to Skin Time (min): 60 Brazing Machine Setter/ALS Called : No Care By: Leela Pastor RN Transferred To: Remains with Mother BABY B INFORMATION : N/A SIGNATURES Assignment: Melia Patton MD Signature: with User ID: [email or web address] : with User ID: [email or web address]
== END 2019-08-09 15:00 | disposition home or self-care (01) | DRG 807 ==
LOC: LC 08:20 → LR 08:56 → 2S 15:14
PROVIDERS: ADMIT Obstetrics & Gynecology; ATTEND Obstetrics & Gynecology
PROC: 10E0XZZ Delivery of Products of Conception, External Approach (ICD-10-PCS; principal; 2019-08-07)
PROC: 10907ZC Drainage of Amniotic Fluid, Therapeutic from Products of Conception, Via Natural or Artificial Opening (ICD-10-PCS; 2019-08-07)
DX: O69.81X0 Labor and delivery complicated by cord around neck, without compression, not applicable or unspecified (principal); Z37.0 Single live birth; Z3A.39 39 weeks gestation of pregnancy
CPT/HCPCS: 36415; 80307; 81005; 85025; 85027; 86592; 86850; 86900; 86901; J2590; J3010; J3490